=== PATIENT | female | born 1995 | race Caucasian/White ===

== ENCOUNTER 2017-12-14 11:26 | Emergency (ER) | payer OTHER ==
[~2017-12-14] VITALS: Ht 160 cm; Wt 93.9 kg
[~2017-12-14 11:26] MED LIST: LOESTRIN1 TA1; NAPROXEN500 MG
[2017-12-14] MEDS ORDERED: CIPRO500 MG PO (17:19)
[2017-12-14] MEDS ORDERED: KETO10TA2 PO (17:19)
== END 2017-12-14 17:27 | disposition home or self-care (01) ==
LOC: ER 11:26
DX: N39.0 Urinary tract infection, site not specified (principal); R10.2 Pelvic and perineal pain; N83.291 Other ovarian cyst, right side

== ENCOUNTER 2022-05-29 21:41 | Outpatient (CLI) | payer OTHER ==
[~2022-05-29 21:41] MED LIST changes: +CIPRO500 MG PO; +KETO10TA2 PO; +PRENATAL TABLE1 EAC1 PO
== END 2022-05-30 11:35 | disposition home or self-care (01) ==
LOC: OBS/DEL 21:41
PROVIDERS: ATTEND Obstetrics & Gynecology
DX: O26.892 Other specified pregnancy related conditions, second trimester (principal); R10.2 Pelvic and perineal pain; Z3A.23 23 weeks gestation of pregnancy

== ENCOUNTER 2022-09-08 02:36 | Outpatient (CLI) | payer OTHER | END 2022-09-08 13:33 | disposition home or self-care (01) | LOC: OBS/DEL 02:36 | PROVIDERS: ATTEND Obstetrics & Gynecology | DX: O26.893 Other specified pregnancy related conditions, third trimester (principal); R10.2 Pelvic and perineal pain; Z3A.37 37 weeks gestation of pregnancy ==